=== PATIENT | female | born 1960 | race Caucasian/White ===

== ENCOUNTER 2017-01-21 10:50 | Outpatient (CLI) | payer OTHER ==
[~2017-01-21 10:50] MED LIST: CATAPRES0.1 MG PO; CORTISOL MANAGER PO; DIAZEPAM5 MG PO; DICYCLOMINE HCL20 MG PO; HYCOSAMINE; LEVOTHYROXINE25 MCG PO; LISINOPRIL40 MG PO; LOMOTIL2.5 MG PO; METHOCARBAMOL750 MG PO; MILK THISTLE150 MG PO; ONDANSETRON ODT4 MG PO; PROBIOTI1 PO; PROMETHAZINE HC50 MG PO; RHODIOLA PO; TIZANIDINE HCL4 MG PO; TURMERIC CURCU500 MG PO; TYLENOL/CODEINE #3 PO; [UNRECOGNIZED DRUG - OTHER]
--- NOTE | 2017-01-21 13:25 | DIAGNOSTIC IMAGING REPORT ---
PROCEDURE: XR UPPER GI WITH AIR INDICATION: Nausea. Belching. Prior Seng fundoplication and cholecystectomy. TECHNIQUE: Double contrast study. Fluoroscopy time, 4.0 minutes; 1828.31 mGy. 62 fluoroscopic images (including cinefluoroscopy). COMPARISON: Comparison is made to prior barium swallow studies (07/15/2013, 01/28/2012, 08/14/2010). FINDINGS: Pharyngoesophagus is within normal limits. There is fusion of the C3-4 and C4-5 disc levels. Status post Seng fundoplication with normal postoperative appearance. There is no evidence of reflux on this study. No evidence of recurrent hiatal hernia. There is a moderate gaseous distention of the stomach prior to this study. Stomach is otherwise normal. Duodenum is normal. IMPRESSION: 1. Status post Seng fundoplication with normal postoperative appearance. 2. No evidence of hiatal hernia and no evidence of reflux. 3. Moderate gaseous distention of the stomach (prior to study) which may be a reflection of fundoplication or air swallowing. 3. Otherwise negative upper GI.
== END 2017-01-21 23:00 ==
LOC: XR SRH 10:50
DX: R11.0 Nausea (principal); R14.2 Eructation; K31.89 Other diseases of stomach and duodenum; Z98.890 Other specified postprocedural states